=== PATIENT | male | born 1945 | race Caucasian/White ===

== ENCOUNTER → 2016-11-08 | Outpatient (CLI) | payer OTHER ==
[2016-11-08 14:49] LABS: BLOOD UREA NITROGEN 19 mg/dL (7-22); BUN/CREATININE RATIO 21.11 (6-20); CALCIUM 9.2 mg/dL (8.7-10.7); EST GLOMERULAR FILTRATION > 60 (>60 ml/min/1.73m(2)); SERUM ALBUMIN 4.2 g/dL (3.5-4.8)
[2016-11-10 11:07] LABS: PSATOTAL 0.79 ng/mL (<=6.5)
[2016-11-11 13:48] LABS: FREE PSA/PSA RATIO SEE COMMENTS ratio (())
== END ==
LOC: LAB 08:30
PROVIDERS: ATTEND Physician Assistant Medical
DX: E87.0 Hyperosmolality and hypernatremia (principal); R97.20 Elevated prostate specific antigen [PSA]
CPT/HCPCS: 80053; 84153; 84154